=== PATIENT | female | born 1965 | race Caucasian/White ===

== ENCOUNTER 2020-12-09 22:28 | Emergency (ER) | payer BC, OTHER ==
[2020-12-09 22:47] VITALS: BP 136/94; PULSE 100
[2020-12-09] MEDS ORDERED: HYDROmorphone 1 MG/ML Syringe IVPUSH STA (22:59)
[2020-12-09] MEDS ORDERED: Ondansetron 4 MG/2 ML SDV IVPUSH ONE (22:59)
[2020-12-09] MEDS ORDERED: Sodium Chloride 0.9% 1,000 ML IV SCH (23:00)
--- NOTE | 2020-12-09 23:10 | EDM.PDOC ---
ED HPI GENERAL MEDICAL PROBLEM - General Chief Complaint: Flank Pain Stated Complaint: SIDE/BACK PAIN Time Seen by Provider: 12/09/20 22:45 Source of Information: Reports: Patient, Family () History Limitations: Reports: No Limitations - History of Present Illness INITIAL COMMENTS - FREE TEXT/NARRATIVE: Mrs. Baldwin is a pleasant 55-year-old woman who now presents the ED stating that she developed left flank pain radiating around to her left lower quadrant, along with nausea and vomiting, around 21:30 tonight. She describes the pain as sharp in character, and states that it is constant. She has not identified any modifiers. She denies associated dysuria or gross hematuria. No recent fever or diarrhea. The patient states that she has had similar symptoms a few times over the past 2 years, approximately. She states that she has had urinalyses done in the past, but no other form of work-up. The patient last ate around 16:00 this afternoon. The patient states that she is chronically constipated, likely due to chronic narcotic use (she takes 6 tablets of Mazon per day), and she reports chronic urinary urgency, but with little urine output, for years. Here in the ED, the patient is found to be hemodynamically stable, afebrile, saturating 99% on room air. She appears to be mildly uncomfortable, but is in no acute distress. The patient reports that she is chronically tired, otherwise, prior to tonight, the patient denies having a recent fever, chills, sore throat, ear pain, nasal or sinus congestion, cough, dyspnea, chest pain, palpitations, nausea, vomiting, constipation, diarrhea, abdominal pain, urinary symptoms, recent weight gain or weight loss, recent bloody bowel movements or black bowel movements, recent joint aches, headaches, or rashes. The patient's PCP is MIKAEL Clarke. She has not received a COVID vaccination. Left Flank Pain Score (Numeric/FACES): 10 - Related Data Allergies Allergy/AdvReac Type Severity Reaction Status Date / Time No Known Allergies Allergy Verified 12/09/20 22:47 Home Meds: Home Meds Zolpidem [Ambien] 10 mg PO BEDTIME 04/01/16 [History] Cyclobenzaprine [Flexeril] 10 mg PO TID PRN #20 tab 03/18/18 [Rx] Hydrocodone/Acetaminophen [HYDROcodone-Acetaminophen 5-325 MG] 1 - 2 each PO Q6HR PRN #20 tablet 03/18/18 [Rx] Ondansetron [Zofran ODT] 1 tab PO Q8H PRN #14 tab.dis 12/10/20 [Rx] Tamsulosin [Flomax] 1 cap PO QAM PRN #10 cap.er 12/10/20 [Rx] Past Medical History Musculoskeletal History: Reports: Fracture (pelvis) Psychiatric History: Reports: Depression, Other (See Below) (Fibromyalgia, insomnia) - Past Surgical History HEENT Surgical History: Reports: Tonsillectomy Female Surgical History: Reports: Hysterectomy (complete) Social & Family History - Tobacco Use Tobacco Use Status *Q: Never Tobacco User Second Hand Smoke Exposure: No - Caffeine Use Caffeine Use: Reports: Soda Other Caffeine Use: once a day - Alcohol Use Alcohol Use History: No - Recreational Drug Use Recreational Drug Use: No - Living Situation & Occupation Living situation: Reports: , with Spouse Occupation: Employed ([employer]) ED ROS GENERAL - Review of Systems Review Of Systems: Comprehensive ROS is negative, except as noted in HPI. ED EXAM, GENERAL - Physical Exam Exam: See Below Exam Limited By: No Limitations General Appearance: Alert, WD/WN, No Apparent Distress Eye Exam: Bilateral Eye: EOMI, Normal Inspection Ears: Normal External Exam, Hearing Grossly Normal Nose: Normal Inspection Throat/Mouth: Normal Inspection, Normal Lips, Normal Voice, No Airway Compromise Head: Atraumatic, Normocephalic Neck: Normal Inspection, Full Range of Motion Respiratory/Chest: No Respiratory Distress, Lungs Clear, Normal Breath Sounds, No Accessory Muscle Use Cardiovascular: Normal Peripheral Pulses, Regular Rate, Rhythm, No Edema, No Gallop, No JVD, No Murmur, No Rub Peripheral Pulses: 3+: Radial (L), Radial (R) GI/Abdominal: Normal Bowel Sounds, Soft, No Organomegaly, No Distention, No Abnormal Bruit, No Mass, Tender (Somewhat tender across the entire abdomen, with the greatest tenderness in the left lower quadrant) Back Exam: Normal Inspection, Full Range of Motion, CVA Tenderness (L). No: CVA Tenderness (R) Extremities: Normal Inspection, Normal Range of Motion, No Pedal Edema, Normal Capillary Refill Neurological: Alert, Oriented, Normal Cognition, No Motor/Sensory Deficits Psychiatric: Flat Affect Skin Exam: Warm, Dry, Intact, Normal Color, No Rash Course - Vital Signs Last Recorded V/S: Last Vital Signs Temp 36.0 C L 12/09/20 22:44 Pulse 100 12/09/20 22:44 Resp 16 12/09/20 22:44 BP 136/94 H 12/09/20 22:44 Pulse Ox 99 12/09/20 22:44 - Orders/Labs/Meds Orders: Active Orders 24 hr Category Date Time Status Strain Urine [RC] ASDIRECTED Care 12/10/20 02:30 Active Abdomen Pelvis w Cont [CT] Stat Exams 12/10/20 Taken CULTURE URINE [MREF] Stat Lab 12/10/20 02:22 Received Sodium Chloride 0.9% [Normal Saline] 1,000 ml Med 12/09/20 23:00 Active IV ASDIRECTED Medication Orders Sodium Chloride (Normal Saline) 1,000 mls @ 150 mls/hr IV ASDIRECTED LAMIN Last Admin: 12/09/20 23:16 Dose: 150 mls/hr Documented by: DAWN Labs: Laboratory Tests 12/09/20 12/09/20 12/10/20 Range/Units 23:18 23:18 02:22 WBC 5.47 (3.98-10.04) K/mm3 RBC 4.30 (3.98-5.22) M/mm3 Hgb 12.8 (11.2-15.7) gm/dl Hct 37.7 (34.1-44.9) % MCV 87.7 (79.4-94.8) fl MCH 29.8 (25.6-32.2) pg MCHC 34.0 (32.2-35.5) g/dl RDW Std Deviation 38.8 (36.4-46.3) fL Plt Count 213 (182-369) K/mm3 MPV 9.3 L (9.4-12.3) fl Neutrophils % (Manual) 65 H (40-60) % Band Neutrophils % 2 (0-10) % Lymphocytes % (Manual) 24 (20-40) % Atypical Lymphs % 0 % Monocytes % (Manual) 8 (2-10) % Eosinophils % (Manual) 1 (0.7-5.8) % Basophils % (Manual) 0 L (0.1-1.2) Platelet Estimate Adequate RBC Morph Comment Normal Sodium 142 (136-145) mEq/L Potassium 3.7 (3.5-5.1) mEq/L Chloride 104 (98-107) mEq/L Carbon Dioxide 28 (21-32) mEq/L Anion Gap 13.7 (5-15) BUN 13 (7-18) mg/dL Creatinine 1.0 (0.55-1.02) mg/dL Est Cr Clr Drug Dosing 63.27 mL/min Estimated GFR (MDRD) 58 (>60) mL/min BUN/Creatinine Ratio 13.0 L (14-18) Glucose 128 H (70-99) mg/dL Calcium 9.0 (8.5-10.1) mg/dL Total Bilirubin 0.4 (0.2-1.0) mg/dL AST 11 L (15-37) U/L ALT 20 (14-59) U/L Alkaline Phosphatase 62 (46-116) U/L Total Protein 7.5 (6.4-8.2) g/dl Albumin 4.2 (3.4-5.0) g/dl Globulin 3.3 gm/dL Albumin/Globulin Ratio 1.3 (1-2) Lipase 68 L (73-393) U/L Urine Color [place] H (Yellow) Urine Appearance Cloudy H (Clear) Urine pH 5.0 (5.0-8.0) Ur Specific [place] 1.025 (1.005-1.030) Urine Protein 2+ H (Negative) Urine Glucose (UA) Trace H (Negative) Urine Ketones Trace H (Negative) Urine Occult Blood 3+ H (Negative) Urine Nitrite Positive H (Negative) Urine Bilirubin 1+ H (Negative) Urine Urobilinogen 1.0 (0.2-1.0) Ur Leukocyte Esterase Negative (Negative) Urine RBC >100 H (0-5) /hpf Urine WBC 0-5 (0-5) /hpf Ur Squamous Epith Cells 0-5 (0-5) /hpf Calcium Oxalate Crystal Rare H (NONE) Urine Bacteria Moderate H (FEW) /hpf Urine Mucus Moderate H (FEW) /hpf Meds: Medications Generic Name Dose Route Start Last Admin Trade Name Freq PRN Reason Stop Dose Admin Sodium Chloride 1,000 mls @ 150 mls/hr 12/09/20 23:00 12/09/20 23:16 Normal Saline IV 150 mls/hr ASDIRECTED LAMIN Administration Discontinued Medications Generic Name Dose Route Start Last Admin Trade Name Edilia PRN Reason Stop Dose Admin Hydromorphone HCl 1 mg 12/09/20 22:59 12/09/20 23:17 Hydromorphone 1 Mg/Ml Syringe IVPUSH 12/09/20 23:00 1 mg ONETIME STA Administration Hydromorphone HCl 1 mg 12/10/20 02:30 12/10/20 02:37 Hydromorphone 1 Mg/Ml Syringe IVPUSH 12/10/20 02:31 1 mg ONETIME ONE Administration Ketorolac Tromethamine 30 mg 12/10/20 02:31 12/10/20 02:36 Ketorolac 30 Mg/Ml Sdv IVPUSH 12/10/20 02:32 30 mg ONETIME STA Administration Ondansetron HCl 4 mg 12/09/20 22:59 12/09/20 23:17 Ondansetron 4 Mg/2 Ml Sdv IVPUSH 12/09/20 23:00 4 mg ONETIME ONE Administration Tamsulosin HCl 0.4 mg 12/10/20 02:30 12/10/20 02:36 Tamsulosin 0.4 Mg Cap.Er PO 12/10/20 02:31 0.4 mg ONETIME ONE Administration - Re-Assessments/Exams Free Text/Narrative Re-Assessment/Exam: 12/09/20 23:02 As above, the patient developed left flank pain radiating to her left lower quadrant, nausea, and vomiting, around 21:30 tonight. She reports chronic urinary urgency for years, and denies recent dysuria. No recent fever or diarrhea. She states that she has had similar symptoms several times over the past 2 years, but no prior medical evaluation for them. On examination, the patient has left CVA tenderness, but also has generalized abdominal tenderness, most prominent in the left lower quadrant. She insists that she is actually tender in the left lower quadrant, not just that that is the location of her p ain. I have therefore ordered a work-up that includes several blood tests, a urinalysis by clean-catch, and a CT of the abdomen and pelvis with oral and IV contrast. In the meantime, the patient will be given IV Dilaudid, IV Zofran, and IV fluid. 12/10/20 01:31 The patient's CBC is unremarkable. Her CMP is remarkable for mild hyperglycemia of 128, and is otherwise unremarkable. Her lipase level is within normal limits at 68. She has not yet provided a urine sample for the urinalysis. Results of the CT of her abdomen and pelvis are still pending. 12/10/20 02:31 CT of the abdomen and pelvis with oral and IV contrast is read by [facility] as "Partially obstructing distal left ureteral stone as above." The body of the report does not indicate the size of the ureteral stone. The patient has provided a urine sample, however, the urinalysis has not yet resulted. Based on the above, I have ordered additional IV Dilaudid, along with oral tamsulosin, IV ketorolac, and a urine strainer. 12/10/20 03:42 The patient's urinalysis is remarkable for orange and cloudy appearance, 3+ occult blood with >100 RBCs, leukocyte esterase negative with 0-5 WBCs, nitrite positive with moderate bacteria, and 0-5 squamous epithelial cells. Based on the above, I will order a urine culture, but I do not feel that her urinalysis is consistent with a UTI, therefore I am not going to start antibiotics at this time. 12/10/20 04:19 Test results discussed with the patient (her is no longer present). I asked her whether or not she is taking Azo, and she confirmed that she has been taking it "forever" due to chronic bladder pain. I advised her to stop doing that, as not only can it mask a UTI, but it is not good for the bladder, either. Recommended that she begin taking OTC ibuprofen every 8 hours, and she can take her on her Mazon as needed for breakthrough pain. I will prescribe tamsulosin that she can start tomorrow morning, as well as Zofran that she can take as needed for pain. She is to stay adequately hydrated and strain all of her urine. If she capture the stone, she should take her to her PCP for analysis. I will also refer her to a Urologist in the event that her pain does not improve within a week or so. Departure - Departure Time of Disposition: 04:21 Disposition: Home, Self-Care 01 Condition: Good Clinical Impression: Ureterolithiasis - Discharge Information *PRESCRIPTION DRUG MONITORING PROGRAM REVIEWED*: Not Applicable *COPY OF PRESCRIPTION DRUG MONITORING REPORT IN PATIENT JORGE: Not Applicable Referrals: Nicole Hoover PA-C [Primary Care Provider] - Mario Carter MD [Ordering Only Provider] - Forms: ED Department Discharge Additional Instructions: You were seen in the emergency room after developing left flank pain that radiated to your lower left abdomen, with nausea and vomiting, last night. Work-up in the ER included several blood tests, a urinalysis, and a CT of your abdomen and pelvis with oral and IV contrast. Your urinalysis is abnormal, but not entirely consistent with an infection. A sample of your urine has been sent for culture, however, antibiotics are not recommended at this time. The CT confirmed that you have a stone in your distal left ureter. The size of the stone is not specified, but the Radiologist implied that it is relatively small. Based on the information provided, you will most likely pass the stone on your own. We recommend you take [id number] ibuprofen, 3 tablets (600 mg) up to every 8 hours, with food, as needed for discomfort. You may take your own Mazon as needed for pain not relieved by ibuprofen. Prescriptions for the anti-spasm medicine tamsulosin (Flomax) and the anti- nausea medicine Zofran have been sent to [facility], located in the [facility] across the [address] from the hospital. Take 1 capsule of tamsulosin every morning, starting tomorrow morning, 12/11/2020, as prescribed. You may dissolve 1 tablet of Zofran on your tongue up to every 8 hours, as needed for nausea/vomiting. Stay adequately hydrated. It does not really matter what type of fluid you drink. Strain all of your urine. If you capture the stone, take it to your PCP for evaluation. We recommend that you follow-up with your PCP, MIKAEL Clarke, this coming Sunday morning, 12/13/2020, to have her check on your urine culture results. If you continue to have pain beyond 1 week, please follow-up with the Urologist Dr. Mario Carter, in [place]. Don't forget that [place] is 1 hour ahead of us. If any other problems, please do not hesitate to return to the ER. Sepsis Event Note (ED) - Evaluation Sepsis Screening Result: No Definite Risk - Focused Exam Vital Signs: Vital Signs Temp Pulse Resp BP Pulse Ox 12/09/20 22:44 36.0 C L 100 16 136/94 H 99 - My Orders Last 24 Hours: My Active Orders 12/09/20 23:00 Sodium Chloride 0.9% [Normal Saline] 1,000 ml IV ASDIRECTED 12/10/20 Abdomen Pelvis w Cont [CT] Stat 12/10/20 02:22 CULTURE URINE [MREF] Stat 12/10/20 02:30 Strain Urine [RC] ASDIRECTED - Assessment/Plan Last 24 Hours: My Active Orders 12/09/20 23:00 Sodium Chloride 0.9% [Normal Saline] 1,000 ml IV ASDIRECTED 12/10/20 Abdomen Pelvis w Cont [CT] Stat 12/10/20 02:22 CULTURE URINE [MREF] Stat 12/10/20 02:30 Strain Urine [RC] ASDIRECTED
[2020-12-10] MEDS ORDERED: Tamsulosin 0.4 MG Cap.ER PO ONE (02:30)
[2020-12-10] MEDS ORDERED: HYDROmorphone 1 MG/ML Syringe IVPUSH ONE (02:30)
[2020-12-10] MEDS ORDERED: Ketorolac 30 MG/ML SDV IVPUSH STA (02:31)
--- NOTE | 2020-12-13 15:19 | CT ---
CT abdomen and pelvis Technique: Multiple axial sections were obtained from above the dome of the diaphragm inferiorly to the pubic symphysis. Intravenous contrast was utilized. No oral contrast has been given. Delayed images were also obtained through the abdomen and pelvis. Comparison: Prior abdomen and pelvis CT performed on 03/18/18. Findings: Dilated left renal pelvis is seen as well as dilated left ureter with mild inflammatory change being seen around the proximal left ureter. These findings are caused by an obstructing calculus within the distal left ureter measuring approximately 3.5 mm. This occurs slightly proximal to the UVJ. Small nonobstructing stone is noted within the left kidney measuring approximately 3-3.5 mm. No other abnormal calcifications are seen. Visualized lung bases show nothing acute. Liver contains no focal abnormality. Contrast is noted within the distal esophagus compatible with reflux. Spleen size is normal. Adrenal glands show no nodule. Pancreas is within normal limits. Gallbladder contains no calcified gallstones. Abdominal aorta shows no aneurysm. No retroperitoneal adenopathy or mesenteric abnormalities are seen. Mild increased stool is noted within the colon. Appendix is not definitely visualized. No pelvic mass or adenopathy is seen. Bone window settings were reviewed which show no acute osseous abnormality. Impression: 1. 3.5 mm calculus within the distal left ureter causing proximal hydronephrosis compatible with obstructing calculus. 2. Small nonobstructing stone within the left kidney. 3. Increased stool within the colon. Mild gastroesophageal reflux. Diagnostic code #3 I agree with preliminary report from [facility], finalized on 12/10/20, 3:24 AM CDT, code 1 MTDD
== END 2020-12-10 04:36 | disposition home or self-care (01) ==
LOC: JD.ED 22:28
DX: N13.2 Hydronephrosis with renal and ureteral calculous obstruction (principal)
CPT/HCPCS: 36415; 74177; 80053; 81001; 83690; 85007; 85027; 87086; 96374; 96375; 96376; 99284; A9270; J1170; J1885; J2405; J7030